=== PATIENT | female | born 1945 | race Caucasian/White ===

== ENCOUNTER 2021-02-28 08:51 | Emergency (ER) | payer OTHER ==
--- NOTE | 2021-02-28 09:58 | RAD REPORT ---
EXAM DESCRIPTION: RAD - Tib Fib Right - 02/28/2021 9:48 am CLINICAL HISTORY: PAIN COMPARISON: No comparisons FINDINGS: No acute fracture. No malalignment. No significant focal degenerative changes. IMPRESSION: No acute osseous abnormality involving the tibia or fibula.
--- NOTE | 2021-02-28 10:01 | ER ---
Nurse's Notes [facility] Name: Damari Pierson Age: 75 yrs Sex: Female : 1945 Arrival Date: 02/28/2021 Time: 08:56 Bed 12 Private MD: Diagnosis: Pain in right lower leg Presentation: 02/28 09:06 Chief complaint: Patient states: fell last night while she was trying to put blankets iw on her plants , fell on side of right leg below th knee , also has some soreness to left hand, did not hit her head , no LOC, was able to ambulate. 09:06 Acuity: ASHLIE 4 iw 09:06 Method Of Arrival: Wheelchair iw 10:33 Coronavirus screen: At this time, the client does not indicate any symptoms associated iw with coronavirus-19. Ebola Screen: Patient negative for fever greater than or equal to 101.5 degrees Fahrenheit, and additional compatible Ebola Virus Disease symptoms Patient denies exposure to infectious person. Patient denies travel to an Ebola-affected area in the 21 days before illness onset. No symptoms or risks identified at this time. Initial Sepsis Screen: Does the patient meet any 2 criteria? No. Patient's initial sepsis screen is negative. Does the patient have a suspected source of infection? No. Patient's initial sepsis screen is negative. Risk Assessment: Do you want to hurt yourself or someone else? Patient reports no desire to harm self or others. Onset of symptoms was February 28, 2021. Historical: - Allergies: 09:08 No Known Allergies; iw - PMHx: 09:08 Diabetes - NIDDM; Hypertension; RAPID HEART RATE; iw - Immunization history:: Client reports receiving the 2nd dose of the Covid vaccine. - Social history:: Smoking status: Patient denies any tobacco usage or history of. Screenin:10 Abuse screen: Denies threats or abuse. Denies injuries from another. Nutritional iw screening: No deficits noted. Tuberculosis screening: No symptoms or risk factors identified. Fall Risk Fall in past 12 months (25 points). Assessment: 09:09 General: Appears in no apparent distress. Behavior is calm, cooperative. Pain: iw Complains of pain in right snider. Neuro: Level of Consciousness is awake, alert, obeys commands, Oriented to person, place, time, situation. 10:21 Reassessment: Patient appears in no apparent distress at this time. Patient and/or iw family updated on plan of care and expected duration. Pain level reassessed. Patient is alert, oriented x 3, equal unlabored respirations, skin warm/dry/pink. Vital Signs: 09:08 BP 135 / 55; Pulse 81; Resp 16; Temp 97.3; Pulse Ox 95% on R/A; iw 09:09 Weight 83.91 kg; Height 5 ft. 7 in. (170.18 cm); iw 09:09 Body Mass Index 28.97 (83.91 kg, 170.18 cm) iw ED Course: 08:56 Patient arrived in ED. am2 09:08 Triage completed. iw 09:09 Kalie Hall, RN is Primary Nurse. iw 09:14 Radha Moody FNP-C is PHCP. kb 09:14 Chente Nichole MD is Attending Physician. kb 09:48 Tib Fib Right XRAY In Process Unspecified. EDMS 09:57 No provider procedures requiring assistance completed. Patient did not have IV access iw during this emergency room visit. 10:21 Patient has correct armband on for positive identification. iw Administered Medications: 10:21 Drug: traMADol 50 mg Route: PO; iw 10:33 Follow up: Response: No adverse reaction iw Outcome: 10:01 Discharge ordered by . kb 10:32 Discharged to home via wheelchair, with family. iw 10:32 Condition: good 10:32 Discharge instructions given to patient, Instructed on discharge instructions, follow up and referral plans. Demonstrated understanding of instructions, follow-up care. 10:32 Patient left the ED. iw Signatures: Dispatcher [employer] EDMS Radha Moody FNP-C FNP-Kalie Guillory, RN RN iw Antonia Ocampo am2
--- NOTE | 2021-02-28 10:02 | EDPHYS ---
Physician Documentation [facility] Name: Damari Pierson Age: 75 yrs Sex: Female : 1945 Arrival Date: 02/28/2021 Time: 08:56 Bed 12 Private MD: ED Physician Chente Nichole HPI: 02/28 09:41 This 75 yrs old Female presents to ER via Wheelchair with complaints of Fall Injury, kb Leg Pain - right. 09:41 Details of fall: The patient fell from an upright position. Onset: The symptoms/episode kb began/occurred yesterday. Associated injuries: The patient sustained lateral aspect of right calf and right snider, painful injury. Severity of symptoms: At their worst the symptoms were mild, in the emergency department the symptoms are unchanged. The patient has not experienced similar symptoms in the past. The patient has not recently seen a physician. Pt states she was stepping on a stick to break it and fell. REports pain to right snider. Abrasion to palm of left hand, but no pain and has full ROM. Denies hip pain, LOC, head injury. Historical: - Allergies: 09:08 No Known Allergies; iw - PMHx: 09:08 Diabetes - NIDDM; Hypertension; RAPID HEART RATE; iw - Immunization history:: Client reports receiving the 2nd dose of the Covid vaccine. - Social history:: Smoking status: Patient denies any tobacco usage or history of. ROS: 09:40 Constitutional: Negative for fever, chills, and weight loss. kb 09:40 MS/extremity: Positive for pain, tenderness, of the lateral aspect of right calf and right snider. 09:40 All other systems are negative. Exam: 09:40 Constitutional: This is a well developed, well nourished patient who is awake, alert, kb and in no acute distress. Head/Face: Normocephalic, atraumatic. ENT: Moist Mucous membranes Respiratory: Respirations even and unlabored. No increased work of breathing. Talking in full sentences Skin: Warm, dry with normal turgor. Normal color. MS/ Extremity: Pulses equal, no cyanosis. Neurovascular intact. Full, normal range of motion. Neuro: Awake and alert, GCS 15, oriented to person, place, time, and situation. Moves all extremities. Normal gait. Psych: Awake, alert, with orientation to person, place and time. Behavior, mood, and affect are within normal limits. Vital Signs: 09:08 BP 135 / 55; Pulse 81; Resp 16; Temp 97.3; Pulse Ox 95% on R/A; iw 09:09 Weight 83.91 kg; Height 5 ft. 7 in. (170.18 cm); iw 09:09 Body Mass Index 28.97 (83.91 kg, 170.18 cm) iw MDM: 09:15 Patient medically screened. kb 09:15 Patient medically screened. [facility] 09:40 Data reviewed: vital signs, nurses notes. Data interpreted: Pulse oximetry: on room air kb is 95 %. Interpretation: normal. 10:00 Counseling: I had a detailed discussion with the patient and/or guardian regarding: the kb historical points, exam findings, and any diagnostic results supporting the discharge/admit diagnosis, radiology results, the need for outpatient follow up, a family practitioner, to return to the emergency department if symptoms worsen or persist or if there are any questions or concerns that arise at home. 02/28 09:17 Order name: Tib Fib Right XRAY; Complete Time: 09:59 kb Administered Medications: 10:21 Drug: traMADol 50 mg Route: PO; iw 10:33 Follow up: Response: No adverse reaction iw Disposition: 03/01 08:37 Co-signature as Attending Physician, Chente Nichole MD I agree with the assessment and [facility] plan of care. Disposition Summary: 02/28/21 10:01 Discharge Ordered Location: Home kb Condition: Stable kb Diagnosis - Pain in right lower leg kb Followup: kb - With: Emergency Department - When: As needed - Reason: Worsening of condition Followup: kb - With: Private Physician - When: 2 - 3 days - Reason: Recheck today's complaints, Continuance of care, Re-evaluation by your physician Discharge Instructions: - Discharge Summary Sheet kb - Musculoskeletal Pain kb Forms: - Medication Reconciliation Form kb - Thank You Letter kb - Antibiotic Education kb - Prescription Opioid Use kb Signatures: Dispatcher [employer] Radha Brice, IMAGE ASSEMBLER-C IMAGE ASSEMBLER-Chente Estevez MD MD cha Williams, Irene, RN RN iw Corrections: (The following items were deleted from the chart) 02/28 09:41 09:40 Constitutional: This is a well developed, well nourished patient who is awake, kb alert, and in no acute distress. Head/Face: Normocephalic, atraumatic. ENT: Moist Mucous membranes Respiratory: Respirations even and unlabored. No increased work of breathing. Talking in full sentences Skin: Warm, dry with normal turgor. Normal color. MS/ Extremity: Pulses equal, no cyanosis. Neurovascular intact. Full, normal range of motion. Neuro: Awake and alert, GCS 15, oriented to person, place, time, and situation. Moves all extremities. Normal gait. Psych: Awake, alert, with orientation to person, place and time. Behavior, mood, and affect are within normal limits. kb
[2021-02-28] MEDS ORDERED: TRAMADOL HCL 50 MG TAB ONE (10:20)
[2021-02-28 10:38] VITALS: BP 135/55; TEMP 97.3; O2SAT 95
== END 2021-02-28 10:32 | disposition home or self-care (01) ==
LOC: ER 08:51
DX: M79.661 Pain in right lower leg (principal)
CPT/HCPCS: 99283

== ENCOUNTER 2023-12-31 09:12 | Emergency (ER) | payer OTHER ==
--- NOTE | 2023-12-31 11:06 | RAD REPORT ---
EXAMINATION: CT Thorax Wo Con CLINICAL INDICATION: Female, 78 years old. [facility] MAIN fall, blunt chest trauma, upper back pain Bed Name: 2 Y TECHNIQUE: Axial CT scan of the chest without intravenous contrast. Multiplanar reformats were genera trenton and reviewed. One or more of the following dose reduction techniques were used: Automated exposure control, adjustment of the mA and/or kV according patient size, and/or iterative reconstruct ion. Unless otherwise specified, incidental findings do not require dedicated imaging follow-up. COMPARISON: 05/25/2016 chest radiograph. 05/19/2016 CT chest. FINDINGS: LOWER NECK: Visualized thyroid gland and soft tissues are normal. LUNGS: The lungs are clear. No evidence of airspace or interstitial process apart from mild dependent atelectatic changes.. No worrisome nodules. PLEURA: No pleural effusion. No pneumothorax. . MEDIASTINUM AND LYMPH NODES: No mediastinal mass or fluid collection. Normal size mediastinal, hilar, and axillary lymph nodes. Moderate sliding hiatal hernia. OSSEOUS STRUCTURES AND CHEST WALL: Nondisplaced but mildly buckled acute appearing fractures oriented transversely along the body of the sternum anterior and posterior cortex, with underlying fat stranding. Nondisplaced right lateral third rib fracture... UPPER ABDOMEN: Small dependent gallstones at the gallbladder neck. IMPRESSION: Nondisplaced but mildly buckled acute appearing fractures oriented transversely along the body of the sternum anterior and posterior cortex, with underlying fat stranding. Nondisplaced right lateral third rib fracture.. THIS REPORT CONTAINS FINDINGS THAT MAY BE CRITICAL TO PATIENT CARE. The findings were verbally commun icated via telephone to Elias Rios MD on 12/31/2023 11:03 AM.
--- NOTE | 2023-12-31 11:28 | ER ---
Nurse's Notes [facility] Name: Damari Pierson Age: 78 yrs Sex: Female : 1945 Arrival Date: 12/31/2023 Time: 09:12 Bed 2 Private MD: Diagnosis: Fracture of body of sternum, initial encounter for closed fracture;Fracture of one rib, unspecified side, initial encounter for closed fracture Presentation: 12/30 09:23 Chief complaint: Patient states: fell onto small table 1 week ago and is still having ss chest tenderness, back pain and bilateral shoulder pain. Pt reports pain is worse when laying down. Coronavirus screen: Client denies travel out of the [place] in the last 14 days. Ebola Screen: Patient denies exposure to infectious person. Patient denies travel to an Ebola-affected area in the 21 days before illness onset. Initial Sepsis Screen: Does the patient meet any 2 criteria? No. Patient's initial sepsis screen is negative. Does the patient have a suspected source of infection? No. Patient's initial sepsis screen is negative. Risk Assessment: Do you want to hurt yourself or someone else? Patient reports no desire to harm self or others. Onset of symptoms was December 24, 2023. 09:23 Method Of Arrival: Ambulatory ss 09:23 Acuity: ASHLIE 3 ss Historical: - Allergies: 09:24 No Known Allergies; ss - PMHx: 09:24 Diabetes - NIDDM; Hypertension; RAPID HEART RATE; ss - Family history:: not pertinent. - Hospitalizations: : No recent hospitalization is reported. Screenin:35 [facility] ED Fall Risk Assessment (Adult) History of falling in the last 3 months, aa5 including since admission Yes- single mechanical fall (1 pt) Confusion or Disorientation No (0 pts) Intoxicated or Sedated No (0 pts) Impaired Gait No (0 pts) Mobility Assist Device Used No (0 pt) Altered Elimination No (0 pt) Score/Fall Risk Level 0 - 2 = Low Risk Oriented to surroundings, Maintained a safe environment, Educated pt \T\ family on fall prevention, incl call for assistance when getting out of bed. Abuse screen: Denies threats or abuse. Nutritional screening: No deficits noted. Tuberculosis screening: No symptoms or risk factors identified. Assessment: 09:30 General: Appears comfortable, Behavior is calm, cooperative. Pain: Complains of pain in aa5 chest, hoang shoulders, and back. Neuro: Level of Consciousness is awake, alert, obeys commands, Oriented to person, place, time, situation. Cardiovascular: Patient's skin is warm and dry. Respiratory: Airway is patent Respiratory effort is even, unlabored, Respiratory pattern is regular, symmetrical. GI: No signs and/or symptoms were reported involving the gastrointestinal system. : No signs and/or symptoms were reported regarding the genitourinary system. EENT: No signs and/or symptoms were reported regarding the EENT system. Derm: Skin is pink, warm \T\ dry. Musculoskeletal: Reports pain in hoang shoulders, and back. 11:30 Reassessment: Patient is alert, oriented x 3, equal unlabored respirations, skin aa5 warm/dry/pink. Vital Signs: 09:23 BP 159 / 84; Pulse 93; Resp 16; Temp 98(TE); Pulse Ox 96% on R/A; ss ED Course: 09:15 Patient arrived in ED. mg5 09:19 Elias Rios MD is Attending Physician. rn 09:24 Triage completed. ss 09:24 Arm band placed on right wrist. ss 09:28 Vianca Overton, RN is Primary Nurse. aa5 09:30 Patient has correct armband on for positive identification. Bed in low position. Call aa5 light in reach. Side rails up X 1. Pulse ox on. NIBP on. 09:49 CT Chest Wo Con In Process Unspecified. EDMS 11:30 No provider procedures requiring assistance completed. IV discontinued, intact, aa5 bleeding controlled, No redness/swelling at site. Pressure dressing applied. Administered Medications: No medications were administered Medication: 11:30 VIS not applicable for this client. aa5 Outcome: 11:28 Discharge ordered by . rn 11:30 Discharged to home ambulatory, aa5 11:30 Condition: stable 11:30 Discharge instructions given to patient, Instructed on discharge instructions, follow up and referral plans. medication usage, Demonstrated understanding of instructions, follow-up care, medications, Prescriptions given X 1, 11:39 Patient left the ED. aa5 Signatures: Dispatcher [employer] EDMS Elias Rios MD MD rn Calderon, Audri, CYRIL RN aa Jenni Mcgrath RN RN ss Sewell, Amalia mg5
--- NOTE | 2023-12-31 11:28 | EDPHYS ---
Physician Documentation [facility] Name: Damari Pierson Age: 78 yrs Sex: Female : 1945 Arrival Date: 12/31/2023 Time: 09:12 Bed 2 Private MD: ED Physician Elias Rios HPI: 12/30 09:48 This 78 yrs old Female presents to ER via Ambulatory with complaints of Fall Injury. rn 09:48 Details of fall: The patient fell from an upright position. Onset: The symptoms/episode rn began/occurred 1 week(s) ago. Associated injuries: The patient sustained injury to the chest. Severity of symptoms: At their worst the symptoms were moderate, in the emergency department the symptoms are unchanged. The patient has not experienced similar symptoms in the past. Patient reports fall from standing 1 week ago, struck chest on edge of table. Reports pain to sternal region that radiates to the back. No difficulty breathing. No hemoptysis. Denies injury to head/neck/spine/abdomen pelvis. No extremity injuries. Remembers all events.. Historical: - Allergies: 09:24 No Known Allergies; ss - PMHx: 09:24 Diabetes - NIDDM; Hypertension; RAPID HEART RATE; ss - Family history:: not pertinent. - Hospitalizations: : No recent hospitalization is reported. ROS: 09:48 Constitutional: Negative for fever, chills, and weight loss, Neck: Negative for injury, rn pain, and swelling, Cardiovascular: Positive for sternal pain Respiratory: Negative for shortness of breath, cough, wheezing, and pleuritic chest pain, Abdomen/GI: Negative for abdominal pain, nausea, vomiting, diarrhea, and constipation, Back: Positive for upper back pain MS/Extremity: Negative for injury and deformity, Skin: Negative for injury, rash, and discoloration, Neuro: Negative for headache, weakness, numbness, tingling, and seizure, Exam: 09:48 Constitutional: This is a well developed, well nourished patient who is awake, alert, rn and in no acute distress. Head/Face: Normocephalic, atraumatic. Neck: No midline cervical tenderness Chest/axilla: Mild peristernal tenderness, no crepitus. Cardiovascular: Regular rate and rhythm. No pulse deficits. Respiratory: No increased work of breathing, no retractions or nasal flaring. Abdomen/GI: Soft, non-tender Back: No spinal tenderness. MS/ Extremity: Pulses equal, no cyanosis. Neurovascular intact. Full, normal range of motion. Equal circumference. Neuro: Awake and alert, GCS 15 Vital Signs: 09:23 BP 159 / 84; Pulse 93; Resp 16; Temp 98(TE); Pulse Ox 96% on R/A; ss MDM: 09:19 Medical Screening Exam initiated rn 11:26 Differential diagnosis: contusion, fracture. Data reviewed: vital signs, nurses notes, rn radiologic studies, CT scan, and as a result, I will discharge patient. Counseling: I had a detailed discussion with the patient and/or guardian regarding the historical points, exam findings, and any diagnostic results supporting the discharge/admit diagnosis, radiology results, the need for outpatient follow up, to return to the emergency department if symptoms worsen or persist or if there are any questions or concerns that arise at home. Special discussion: I discussed with the patient/guardian in detail that at this point there is no indication for admission to the hospital. It is understood, however, that if the symptoms persist or worsen the patient needs to return immediately for re-evaluation. ED course: CT results show nondisplaced sternal fracture and right rib fracture of the third rib. No underlying complication. No pneumothorax. Patient has had this for a week already. States Tylenol not helping so we will prescribe something stronger for pain. I have personally reviewed all of the results, including but not limited to imaging deemed necessary to safely discharge this patient at this time. All results given to and printed out for patient. I personally went over all the results with the patient and answered all questions. Patient will follow-up with PCP and or specialist as discussed. Return precautions given and understood.. 12/30 09:35 Order name: CT Chest Wo Con; Complete Time: 11:18 rn Administered Medications: No medications were administered Disposition Summary: 12/31/23 11:28 Discharge Ordered Notes: Location: Home rn Problem: new rn Symptoms: have improved rn Condition: Stable rn Diagnosis - Fracture of body of sternum, initial encounter for closed fracture rn - Fracture of one rib, unspecified side, initial encounter for closed fracture rn Followup: rn - With: Private Physician - When: As needed - Reason: Recheck today's complaints, Re-evaluation by your physician Discharge Instructions: - Discharge Summary Sheet rn - Rib Fracture rn - Sternal Fracture rn Forms: - Medication Reconciliation Form rn - Antibiotic fashion journalist - Prescription Opioid Use rn - Patient Portal Instructions rn - Leadership Thank You Letter rn Prescriptions: - Tramadol 50 mg Oral Tablet - take 1 tablet ORAL route every 8 hours as needed; 12 tablet; Refills: 0, rn Product Selection Permitted Signatures: Dispatcher [employer] Elias Mcneal MD MD rn Blanchard, Shelby, RN RN ss
[2023-12-31 11:43] VITALS: BP 159/84; TEMP 98; O2SAT 96
== END 2023-12-31 11:39 | disposition home or self-care (01) ==
LOC: ER 09:12
DX: S22.22XA Fracture of body of sternum, initial encounter for closed fracture (principal); S22.39XA Fracture of one rib, unspecified side, initial encounter for closed fracture; W18.30XA Fall on same level, unspecified, initial encounter
CPT/HCPCS: 71250; 99283